=== PATIENT | female | born 1990 | race Caucasian/White ===

== ENCOUNTER → 2021-01-26 | Outpatient (CLI) | payer OTHER ==
--- NOTE | 2021-01-26 13:31 | Diagnostic Imaging Report ---
INDICATION: survey. TECHNIQUE: Multiple real-time grayscale images were obtained over the gravid uterus. COMPARISON: None FINDINGS: There is a single live fetus in a breech presentation. heart rate was recorded at 158 bpm. Placenta is anterior. Amniotic fluid index is normal. Cervical length is 3.6 cm. kidneys, bladder and stomach are unremarkable. brain is unremarkable. There is a four-chamber heart. There is a three-vessel cord with normal insertion. spine is unremarkable. Biometrical measurements are as follows: Biparietal 4.72 cm, age 20 weeks 2 days. Head circumference 17.88 cm, age 20 weeks 3 days. Abdominal circumference 14.95 cm, age 20 weeks 2 days. Femur length 3.12 cm, age 19 weeks 5 days. Sonographic estimate age: 20 weeks 2 days. Sonographic estimated date of delivery: 06/13/2021. Estimated Weight: 326 gm (+/- 48 gm). LMP percentile: 30%. heart rate: 158 beats per minute. number: 1 of 1. IMPRESSION: Single live IUP 20 weeks 2 days gestational age. Estimated date of confinement sonographically is a 06/13/2021. Dictated by: Dictated on workstation # [id number]
== END ==
LOC: RAD 09:51
PROVIDERS: ATTEND Obstetrics & Gynecology
DX: Z34.92 Encounter for supervision of normal pregnancy, unspecified, second trimester (principal); Z3A.20 20 weeks gestation of pregnancy
CPT/HCPCS: 76805

== ENCOUNTER 2021-06-11 08:22 | Inpatient (IN) | payer OTHER ==
[~2021-06-11] VITALS: Ht 152.4 cm; Wt 65.4 kg
[2021-06-11] VITALS (9 sets, daily range): BP systolic 106–122; BP diastolic 61–85
[2021-06-11] MEDS ORDERED: AMPICILLIN FOR IV USE 2,000 MG in WATER (STERILE) FOR INJECTION 14.8 ML IV SCH (08:37)
[2021-06-11] MEDS ORDERED: WATER (STERILE) FOR INJECTION 20 ML ONE (08:39)
[2021-06-11] MEDS ORDERED: AMPICILLIN 2,000 MG/14.8 ML (IV USE) ONE (08:39)
[2021-06-11] MEDS ORDERED: AMPICILLIN FOR IV USE 2,000 MG in WATER (STERILE) FOR INJECTION 14.8 ML IV ONE (08:45)
[2021-06-11] MEDS ORDERED: OXYTOCIN PRE-MIX DRIP 500 ML IV SCH ×2 (08:45→10:30)
[2021-06-11] MEDS ORDERED: D5 LR IV SOLUTION 1,000 ML IV SCH ×2 (08:45)
[2021-06-11] MEDS ORDERED: AMPICILLIN FOR IV USE 1,000 MG in WATER (STERILE) FOR INJECTION 7.4 ML IV SCH ×2 (08:45→12:45)
[2021-06-11 08:51] LABS: BASOPHILS # (AUTO) 0.1 10^3/uL (0.0-0.1); BASOPHILS % (AUTO) 0 % (0-10); EOSINOPHILS # (AUTO) 0.1 10^3/uL (0.0-0.3); EOSINOPHILS % (AUTO) 1 % (0-10); HEMATOCRIT 35 % (35-52); HEMOGLOBIN 11.6 g/dL (11.5-16.0); LYMPHOCYTES # (AUTO) 2.4 10^3/uL (1.0-4.0); LYMPHOCYTES % (AUTO) 19 % (12-44); MEAN CORPUSCULAR HEMOGLOBIN 30 pg (25-34); MEAN CORPUSCULAR HGB CONC 33 g/dL (32-36); MEAN CORPUSCULAR VOLUME 90 fL (80-99); MEAN PLATELET VOLUME 10.9 fL (9.0-12.2); MONOCYTES # (AUTO) 0.9 10^3/uL (0.0-1.0); MONOCYTES % (AUTO) 7 % (0-12); NEUTROPHILS # (AUTO) 9.2 10^3/uL (1.8-7.8); NEUTROPHILS % (AUTO) 73 % (42-75); PLATELET COUNT 138 10^3/uL (130-400); WHITE BLOOD COUNT 12.7 10^3/uL (4.3-11.0)
[2021-06-11] MEDS ORDERED: LIDOCAINE 1% INJ 20 ML 20 ML VIAL ONE (08:53)
[2021-06-11] MEDS ORDERED: MEASLES,MUMPS,RUBELLA 1 EA INJ SC ONE (10:30)
[2021-06-11] MEDS ORDERED: oxyCODONE/APAP 5/325MG (PERCOCET 5) TABLET PO PRN (10:30)
[2021-06-11] MEDS ORDERED: ONDANSETRON 4 MG/2 ML (SDV) Z0FRAN IVP PRN (10:30)
[2021-06-11] MEDS ORDERED: TETANUS,DIPTH,PERTUSS P/F (BOOSTRIX) 0.5 ML VIAL IM ONE (10:30)
[2021-06-11] MEDS ORDERED: BENZOCAINE/MENTHOL (DERMOPLAST) 56 ML CAN TP PRN (10:30)
[2021-06-11] MEDS ORDERED: KETOROLAC 30 MG/ML VIAL ONE (10:40)
[2021-06-11] MEDS: KETOROLAC 30 MG/ML VIAL IVP SCH ×2 (10:43→18:01)
[2021-06-11] MEDS ORDERED: PREN-37 PO (11:21)
[2021-06-11] MEDS: ACETAMINOPHEN 500 MG TAB (TYLENOL) PO PRN (13:26)
--- NOTE | 2021-06-11 13:29 | OPERATIVE REPORT ---
DATE OF SERVICE: 06/11/2021 DELIVERY NOTE The patient delivered by term spontaneous vaginal delivery of a viable female with Apgars of 9 and 9 at 1 and 5 minutes respectively, weight of 7 pounds 8 ounces. time of 0935. Delivery was accomplished over an intact perineum under no analgesia. The was bulb suctioned on delivery of the head and again on completion of delivery. Umbilical cord was doubly clamped, the father cut the cord, the baby was passed to mom's abdomen. Cord bloods were obtained. The placenta delivered spontaneously [place]. It was normal with a 3-vessel cord. It was sent to pathology for permanent section. The cervix, vagina, rectum, and perineum were examined and found intact. Sponge and needle counts were correct on completion of delivery and the post-delivery inspection. Blood loss was around 100 mL. The patient remained in the LDR for recovery and the baby remained with the mom. Job ID: [id number] DocumentID: [id number] Dictated Date: 06/11/2021 09:50:12 [employer] Date: 06/11/2021 13:28:55 Dictated By: SHANEL LOVE MD
[2021-06-11] MEDS ORDERED: CATHETER FLUSH 10 ML SYR IV SCH (14:00)
[2021-06-11] MEDS ORDERED: OXYC1TAB87 PO (16:10)
[2021-06-11] MEDS ORDERED: DCS100C PO (16:10)
[2021-06-11] MEDS ORDERED: IBUP-1780 PO (16:10)
--- NOTE | 2021-06-11 16:13 | Discharge Inst-Surgical ---
Discharge Inst-Surgical Depart Medication/Instructions New, Converted or Re-Newed RX: Transmitted to Pharmacy Consults/Follow Up Patient Instructions: As directed Orders & Referrals Follow Up Appt: Call to make follow up appt. for patient in [address] Leiva. Activity Per routine post vaginal delivery instructions. Diet as tolerated Patient may shower or tub bathe as desired. Activity Activity as Tolerated: No Diet Discharge Diet: No Restrictions SHANEL LOVE MD Jun 11, 2021 16:13
[2021-06-11] MEDS: DOCUSATE SODIUM 100 MG (COLACE) CAP PO SCH (20:44)
[2021-06-12] VITALS: BP 99/54
[2021-06-12] MEDS: KETOROLAC 30 MG/ML VIAL IVP SCH ×2 (00:05→06:19)
[2021-06-12 04:00] VITALS: BP 102/87
--- NOTE | 2021-06-12 07:21 | Progress Note ---
Standard Progress Note Progress Notes/Assess & Plan Date Seen by a Provider: Jun 12, 2021 Time Seen by a Provider: 07:21 Progress/Assessment & Plan This patient is without complaint. She is ambulating, voiding, tolerating oral intake well has good pain control. Vital Signs 06/12/21 04:00 Temp 36.9 Pulse 69 Resp 16 B/P (MAP) 102/87 (92) Pulse Ox 99 O2 Delivery Room Air Vital signs are stable. Patient is afebrile. Fundus is firm below the umbilicus and nontender. Extremities show no clubbing cyanosis. There is no Homans' sign. Assessment and plan day #1 status post term spontaneous vaginal labor at 39+ weeks gestation. Plan is for routine convalescent care with discharge home at patient's request today or tomorrow Final Diagnosis 39-week spontaneous vaginal delivery SHANEL LOVE MD Jun 12, 2021 07:21
[2021-06-12 08:45] VITALS: BP 114/69
[2021-06-12] MEDS: DOCUSATE SODIUM 100 MG (COLACE) CAP PO SCH ×2 (08:47→21:00)
[2021-06-12] MEDS: ACETAMINOPHEN 500 MG TAB (TYLENOL) PO PRN (08:47)
[2021-06-12] MEDS ORDERED: IBUPROFEN 800 MG (MOTRIN) TAB PO ONE (13:20)
[2021-06-12] MEDS: IBUPROFEN 800 MG (MOTRIN) TAB PO SCH ×2 (13:28→18:26)
[2021-06-12 13:30] VITALS: BP 107/59
[2021-06-12 18:15] VITALS: BP 112/71
[2021-06-12 22:25] VITALS: BP 103/71
[2021-06-13] MEDS: IBUPROFEN 800 MG (MOTRIN) TAB PO SCH ×3 (06:00→12:12)
[2021-06-13 08:56] VITALS: BP 101/59
[2021-06-13] MEDS: DOCUSATE SODIUM 100 MG (COLACE) CAP PO SCH (09:04)
--- NOTE | 2021-06-13 10:04 | Progress Note ---
Standard Progress Note Progress Notes/Assess & Plan Date Seen by a Provider: Jun 13, 2021 Time Seen by a Provider: 10:03 Progress/Assessment & Plan This patient is without complaint. She is ambulating, voiding, tolerating oral intake well has good pain control. Vital Signs 06/12/21 04:00 Temp 36.9 Pulse 69 Resp 16 B/P (MAP) 102/87 (92) Pulse Ox 99 O2 Delivery Room Air Vital signs are stable. Patient is afebrile. Fundus is firm below the umbilicus and nontender. Extremities show no clubbing cyanosis. There is no Homans' sign. Assessment and plan day #1 status post term spontaneous vaginal labor at 39+ weeks gestation. Plan is for routine convalescent care with discharge home at patient's request today or tomorrow June 13, 2021 This patient is without complaint. She is ambulating, voiding, tolerating oral intake well and has good pain control. Patient is requesting discharge home. Vital Signs Date Time Temp Pulse Resp B/P (MAP) Pulse Ox O2 Delivery O2 Flow Rate FiO2 06/13/21 08:56 37.2 70 16 101/59 (73) 97 Room Air 06/12/21 22:25 36.4 60 16 103/71 (82) 99 Room Air 06/12/21 18:15 37.0 72 18 112/71 (85) 97 Room Air 06/12/21 13:30 36.5 86 18 107/59 (75) 96 Room Air Vital signs are stable. Patient is afebrile. Fundus is firm below the umbilicus nontender Extremities show no clubbing cyanosis. There is no Homans' sign. Assessment and plan day #2 status post term spontaneous vaginal labor doing well. Plan is for discharge home with follow-up in clinic Final Diagnosis 9-week spontaneous vaginal delivery SHANEL LOVE MD Jun 13, 2021 10:04
[2021-06-13 12:48] VITALS: BP 101/59
[2021-06-16] MEDS ORDERED: IBUPROFEN 800 MG (MOTRIN) TAB PO SCH (12:00)
== END 2021-06-13 13:00 | disposition home or self-care (01) | DRG 807 ==
LOC: WSo 08:22 → LDRP 08:24 → WSo 08:35 → LDRP 08:36
PROVIDERS: ADMIT Obstetrics & Gynecology; ATTEND Obstetrics & Gynecology
PROC: 10E0XZZ Delivery of Products of Conception, External Approach (ICD-10-PCS; principal; 2021-06-11)
DX: O80 Encounter for full-term uncomplicated delivery (principal); Z37.0 Single live birth; Z3A.39 39 weeks gestation of pregnancy
CPT/HCPCS: 36415; 85025; 86850; 86900; 86901; 99212

== ENCOUNTER 2023-09-16 23:46 | Emergency (ER) | payer OTHER ==
[~2023-09-16] VITALS: Ht 152.4 cm; Wt 49.8 kg
[~2023-09-16 23:46] MED LIST: DOCU-239 PO; IBUP-1780 PO; OXYC1TAB87 PO; PREN-37 PO
[2023-09-17] MEDS ORDERED: LACTATED RINGERS 1,000 ML 1,000 ML IV ONE ×2 (00:15→00:45)
--- NOTE | 2023-09-17 00:15 | ED Abdominal Pain ---
General Chief Complaint: Abdominal/GI Problems Stated Complaint: RT SIDE PX Nursing Triage Note: PT AMB TO RM 10 WHILE GUARDING ABD. PT STATES THAT SHE DEVELOPED RIGHT SIDED ABD THAT STARTED THIS EVENING. PT REPORTS THAT SHE STARTED HER PERIOD TODAY WHILE. HISTORY OF OVARIAN CYST. Source of Information: Patient History of Present Illness Date Seen by Provider: Sep 17, 2023 Time Seen by Provider: 00:02 Initial Comments PT ARRIVES VIA POV FROM HOME C/O RLQ PAIN SINCE 1400 THIS AFTERNOON, HAS BEEN SEVERE SINCE 2129 TONIGHT RATES PAIN 10/10 + NAUSEA, NO VOMITING. HAD NORMAL BM EARLIER TODAY NO URINARY SYMPTOMS STARTED HER PERIOD TODAY, NORMAL. NO CONTROL. NO VAGINAL DISCHARGE OR FORESTRY ADVISER COMPLAINTS PRIOR TO STARTING HER PERIOD TODAY NO FEVER NO HISTORY OF SIMILAR HAS HAD SURGERY FOR OVARIAN CYST IN THE PAST, NO OTHER SURGERIES NO CHRONIC MEDICAL PROBLEMS OR DAILY MEDICATIONS. PT TOOK 600 MG IBUPROFEN AT 2144--NO RELIEF. PCP: NONE--PT FROM HERE AND JUST MOVED TO [place]--NO DR ANYWHERE. STATES SHE NEVER GOES TO THE DR. Allergies and Home Medications Allergies Coded Allergies: No Known Drug Allergies (Unverified , 06/11/21) Patient Home Medication List Home Medication List Reviewed: Yes Docusate Sodium (Dok) 100 Mg Capsule, 100 MG PO BID Prescribed by: SHANEL VILLALOBOS on 06/11/21 161 Ibuprofen (Ibuprofen) 800 Mg Tablet, 800 MG PO Q6HR Prescribed by: SHANEL VILLALOBOS on 06/11/21 161 Ketorolac Tromethamine (Ketorolac Tromethamine) 10 Mg Tablet, 10 MG PO Q6H Prescribed by: PAZ THORNTON on 09/17/23 05 Ondansetron (Ondansetron Odt) 4 Mg Tab.rapdis, 4 MG PO Q4H Prescribed by: PAZ THORNTON on 09/17/23 0514 Oxycodone HCl/Acetaminophen (Percocet 5-325 mg Tablet) 1 Each Tablet, 1 TAB PO Q4H PRN for PAIN-MODERATE (5-7) Prescribed by: SHANEL VILLALOBOS on 06/11/21 1612 Vit/Iron Fumarate/FA ( Tablet) 1 Each Tablet, 1 EACH PO DAILY, (Reported) Entered as Reported by: PRITI SANCHEZ on 06/11/21 1121 Review of Systems Review of Systems Constitutional: no symptoms reported Respiratory: No Symptoms Reported Cardiovascular: No Symptoms Reported Gastrointestinal: See HPI, Abdominal Pain, Nausea Genitourinary: See HPI Musculoskeletal: no symptoms reported Skin: no symptoms reported Psychiatric/Neurological: No Symptoms Reported Endocrine: No Symptoms Reported Hematologic/Lymphatic: No Symptoms Reported Past Dgzmxik-Etkvmj-Nzunou Hx Patient Social History Tobacco Use?: No Substance use?: No Alcohol Use?: Yes Alcohol Frequency: Once in a while Immunizations Up To Date First/Initial COVID19 Vaccinat: JANUARY 2021 Second COVID19 Vaccination [place]: JANUARY 2021 Third COVID19 Vaccination Date: JANUARY 2021 Past Medical History Surgery/Hospitalization HX: OVARIAN CYST REMOVAL Surgeries: Yes (OVARIAN CYST REMOVAL) Respiratory: No Cardiac: No Neurological: No Reproductive Disorders: Yes Female Reproductive Disorders: Ovarian Cyst Genitourinary: No Gastrointestinal: No Musculoskeletal: No Endocrine: No HEENT: No Cancer: No Psychosocial: No Integumentary: No Blood Disorders: No Physical Exam Vital Signs Vital Signs - First Documented 09/17/23 00:00 Temp 36.6 Pulse 81 B/P (MAP) 127/89 (102) Pulse Ox 99 O2 Delivery Room Air Capillary Refill : Height/Weight/BMI Height: '" Weight: lbs. oz. 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, no motor/sensory deficits, alert, oriented x 3 Skin: normal color, warm/dry; No rash Progress/Results/Core Measures Results/Orders Lab Results Laboratory Tests Test 09/17/23 00:05 09/17/23 00:10 Range/Units White Blood Count 14.2 H 4.3-11.0 10^3/uL Red Blood Count 4.51 3.80-5.11 10^6/uL Hemoglobin 11.9 11.5-16.0 g/dL Hematocrit 37 35-52 % Mean Corpuscular Volume 81 80-99 fL Mean Corpuscular Hemoglobin 26 25-34 pg Mean Corpuscular Hemoglobin Concent 33 32-36 g/dL Red Cell Distribution Width 13.5 10.0-14.5 % Platelet Count 296 130-400 10^3/uL Mean Platelet Volume 9.5 9.0-12.2 fL Immature Granulocyte % (Auto) 0 % Neutrophils (%) (Auto) 74 42-75 % Lymphocytes (%) (Auto) 20 12-44 % Monocytes (%) (Auto) 5 0-12 % Eosinophils (%) (Auto) 0 0-10 % Basophils (%) (Auto) 0 0-10 % Neutrophils # (Auto) 10.6 H 1.8-7.8 10^3/uL Lymphocytes # (Auto) 2.8 1.0-4.0 10^3/uL Monocytes # (Auto) 0.7 0.0-1.0 10^3/uL Eosinophils # (Auto) 0.0 0.0-0.3 10^3/uL Basophils # (Auto) 0.1 0.0-0.1 10^3/uL Immature Granulocyte # (Auto) 0.1 0.0-0.1 10^3/uL Neutrophils % (Manual) 70 % Lymphocytes % (Manual) 20 % Monocytes % (Manual) 3 % Band Neutrophils 2 % Reactive Lymphocytes 5 % Elliptocytes SLIGHT Sodium Level 133 L 135-145 MMOL/L Potassium Level 3.3 L 3.6-5.0 MMOL/L Chloride Level 101 98-107 MMOL/L Carbon Dioxide Level 21 21-32 MMOL/L Anion Gap 11 5-14 MMOL/L Blood Urea Nitrogen 11 7-18 MG/DL Creatinine 0.71 0.60-1.30 MG/DL Estimat Glomerular Filtration Rate 114 BUN/Creatinine Ratio 15 Glucose Level 106 H 70-105 MG/DL Calcium Level 9.5 8.5-10.1 MG/DL Corrected Calcium 9.1 8.5-10.1 MG/DL Total Bilirubin 0.4 0.1-1.0 MG/DL Aspartate Amino Transf (AST/SGOT) 19 5-34 U/L Alanine Aminotransferase (ALT/SGPT) 10 0-55 U/L Alkaline Phosphatase 47 40-136 U/L C-Reactive Protein High Sensitivity 0.09 0.00-0.50 MG/DL Total Protein 8.0 6.4-8.2 GM/DL Albumin 4.5 3.2-4.5 GM/DL Serum Test, Qualitative NEGATIVE NEGATIVE Urine Color YELLOW Urine Clarity CLEAR Urine pH 6.0 5-9 Urine Specific [place] >=1.030 1.016-1.022 Urine Protein 2+ H NEGATIVE Urine Glucose (UA) NEGATIVE NEGATIVE Urine Ketones 4+ H NEGATIVE Urine Nitrite NEGATIVE NEGATIVE Urine Bilirubin 1+ H NEGATIVE Urine Urobilinogen 0.2 < = 1.0 MG/DL Urine Leukocyte Esterase NEGATIVE NEGATIVE Urine RBC (Auto) 2+ H NEGATIVE Urine RBC 5-10 H /HPF Urine WBC NONE /HPF Urine Crystals PRESENT H /LPF Urine Amorphous Sediment FEW ALFONZO URATES H /LPF Urine Bacteria TRACE /HPF Urine Casts NONE /LPF Urine Mucus LARGE H /LPF Urine Culture Indicated NO My Orders Orders - PAZ THORNTON DO Ed Iv/Invasive Line Start (09/17/23 00:08) Urine Bedside (09/17/23 00:08) Monitor-Rhythm Ecg Trace Only (09/17/23 00:08) Cbc And Automated Diff (09/17/23 00:08) Comprehensive Metabolic Panel (09/17/23 00:08) Hs C Reactive Protein (09/17/23 00:08) Hcg,Qualitative Serum (09/17/23 00:08) Ua Culture If Indicated (09/17/23 00:08) Ed Iv/Invasive Line Start (09/17/23 00:08) Lactated Ringers 1,000 Ml (Lactated Ring (09/17/23 00:15) Manual Differential (09/17/23 00:05) Ct Abd/Pelv W (Appendicitis) (09/17/23 00:35) Ketorolac Injection (Ketorolac Injection (09/17/23 00:45) Ondansetron Injection (Ondansetron Inj (09/17/23 00:45) Ed Iv/Invasive Line Start (09/17/23 00:43) Lactated Ringers 1,000 Ml (Lactated Ring (09/17/23 00:45) Iohexol Injection (Omnipaque 350 Mg/Ml 1 (09/17/23 01:30) Received Contrast (Hold Metformin- Contr (09/17/23 01:30) Sodium Chloride Flush (Catheter Flush Sy (09/17/23 01:30) Ns (Ivpb) 100 Ml (Sodium Chloride 0.9% 1 (09/17/23 01:30) Us Non Ob Transvaginal [id number] (09/17/23 02:49) Medications Given in ED Current Medications Medications Dose Ordered Sig/Bernadette Route Start Time Stop Time Status Last Admin Dose Admin Iohexol 100 ml ONCE ONCE IV 09/17/23 01:30 09/17/23 01:31 DC 09/17/23 01:27 60 ML Ketorolac Tromethamine 30 mg ONCE ONCE IVP 09/17/23 00:45 09/17/23 00:46 DC 09/17/23 00:49 30 MG Lactated Ringer's 1,000 ml @ 0 mls/hr Q0M ONCE IV 09/17/23 00:15 09/17/23 00:16 DC 09/17/23 00:23 0 MLS/HR Lactated Ringer's 1,000 ml @ 0 mls/hr Q0M ONCE IV 09/17/23 00:45 09/17/23 00:46 DC 09/17/23 00:49 0 MLS/HR Ondansetron HCl 4 mg ONCE ONCE IVP 09/17/23 00:45 09/17/23 00:46 DC 09/17/23 00:49 4 MG Sodium Chloride 10 ml NEEDED PRN IV 09/17/23 01:30 09/17/23 01:28 10 ML Sodium Chloride 100 ml ONCE ONCE IV 09/17/23 01:30 09/17/23 01:31 DC 09/17/23 01:27 80 ML Vital Signs/I&O 09/17/23 00:00 Temp 36.6 Pulse 81 B/P (MAP) 127/89 (102) Pulse Ox 99 O2 Delivery Room Air Blood Pressure Mean: 102 Progress Progress Note : Progress Note VITALS ON ARRIVAL: TEMP 36.6=97.8, HR 81, BP 127/89, O2 SAT 99% ON ROOM AIR GIVEN: -IV FLUIDS -ZOFRAN -TORADOL PAIN AND NAUSEA IMPROVED WITH MEDICATIONS LABS: -CBC WITH WBC 14.2, OTHERWISE NORMAL -CMP WITH NA 133, K 3.3, OTHERWISE NORMAL -CRP 0.09 -UA CLEAR -HCG NEGATIVE CT SCAN OF ABDOMEN/PELVIS WITH OVARIAN CYSTS ULTRASOUND Diagnostic Imaging Comments CT ABDOMEN/PELVIS--PER [facility] VIA FAX AT 3771 -NO EVIDENCE OF APPENDICITIS -PROBABLE 5.5 CM LEFT OVARIAN CYST WITH THICKENED PERIPHERAL MARGINS -PROBABLE 3.8 CM OVARIAN FAT-CONTAINING TERATOMA -SMALL AMOUNT OF FREE FLUID IN PELVIS -MODERATE-LARGE RETAINED COLONIC AND RECTAL STOOL PELVIC ULTRASOUND--PER [facility] VIA FAX AT 6402 -UNREMARKABLE UTERUS AND ENDOMETRIAL STRIPE -NO EVIDENCE FOR OVARIAN TORSION -4.4 CM LEFT OVARIAN HEMORRHAGIC CYST Reviewed: Reviewed by Me Departure Impression Primary Impression: Hemorrhagic cyst of left ovary Disposition: HOME, SELF-CARE Condition: Improved Departure-Patient Inst. Decision time for Depature: 05:12 Referrals: DERREK ROMERO DO (PCP) Primary Care Physician NO,LOCAL PHYSICIAN (Family) Primary Care Physician Patient Instructions: Ovarian Cyst ED Add. Discharge Instructions: LOTS OF FLUIDS FOLLOW UP WITH OF [facility]REW IF SYMPTOMS PERSIST, RETURN TO ER IF SYMPTOMS WORSEN All discharge instructions reviewed with patient and/or family. Voiced understanding. Scripts Ondansetron (Ondansetron Odt) 4 Mg Tab.rapdis 4 MG PO Q4H for Nausea/Vomiting, #10 TAB Prov: PAZ THORNTON DO 09/17/23 Ketorolac Tromethamine (Ketorolac Tromethamine) 10 Mg Tablet 10 MG PO Q6H for Pain, #15 TAB Prov: PAZ THORNTON DO 09/17/23 PAZ THORNTON DO Sep 17, 2023 00:15
[2023-09-17 00:18] LABS: BASOPHILS # (AUTO) 0.1 10^3/uL (0.0-0.1); BASOPHILS % (AUTO) 0 % (0-10); EOSINOPHILS % (AUTO) 0 % (0-10); HEMATOCRIT 37 % (35-52); HEMOGLOBIN 11.9 g/dL (11.5-16.0); LYMPHOCYTES # (AUTO) 2.8 10^3/uL (1.0-4.0); LYMPHOCYTES % (AUTO) 20 % (12-44); MEAN CORPUSCULAR HEMOGLOBIN 26 pg (25-34); MEAN CORPUSCULAR HGB CONC 33 g/dL (32-36); MEAN CORPUSCULAR VOLUME 81 fL (80-99); MEAN PLATELET VOLUME 9.5 fL (9.0-12.2); MONOCYTES # (AUTO) 0.7 10^3/uL (0.0-1.0); MONOCYTES % (AUTO) 5 % (0-12); NEUTROPHILS # (AUTO) 10.6 10^3/uL (1.8-7.8); NEUTROPHILS % (AUTO) 74 % (42-75); PLATELET COUNT 296 10^3/uL (130-400); WHITE BLOOD COUNT 14.2 10^3/uL (4.3-11.0)
[2023-09-17 00:21] LABS: ALBUMIN 4.5 GM/DL (3.2-4.5); POTASSIUM 3.3 MMOL/L (3.6-5.0)
[2023-09-17 00:22] LABS: CALCIUM 9.5 MG/DL (8.5-10.1)
[2023-09-17 00:25] LABS: BILIRUBIN,TOTAL 0.4 MG/DL (0.1-1.0)
[2023-09-17 00:27] LABS: CREATININE SERUM 0.71 MG/DL (0.60-1.30)
[2023-09-17 00:29] LABS: CLARITY,URINE CLEAR; COLOR,URINE YELLOW
[2023-09-17 00:30] LABS: AMORPHOUS SEDIMENT,UR FEW AMOR URATES /LPF; BACTERIA,URINE TRACE /HPF; BILIRUBIN,URINE 1+ (NEGATIVE); GLUCOSE, URINE (UA) NEGATIVE (NEGATIVE); KETONES,URINE 4+ (NEGATIVE); LEUKOCYTE ESTERASE ,URINE NEGATIVE (NEGATIVE); NITRITE,URINE NEGATIVE (NEGATIVE); PROTEIN,URINE 2+ (NEGATIVE)
[2023-09-17 00:36] LABS: BAND NEUTROPHILS 2 %; LYMPHOCYTES % (MANUAL) 20 %; MONOCYTES % (MANUAL) 3 %; NEUTROPHILS % (MANUAL) 70 %; REACTIVE LYMPHOCYTES 5 %
[2023-09-17 00:37] LABS: ELLIPT/OVALOCYTES SLIGHT
[2023-09-17] MEDS ORDERED: KETOROLAC INJ 30 MG/ML VIAL IVP ONE (00:45)
[2023-09-17] MEDS ORDERED: ONDANSETRON INJECTION 4 MG/2 ML (SDV) IVP ONE (00:45)
[2023-09-17] MEDS ORDERED: IOHEXOL 350 MG/ML 100 ML (OMNIPAQUE 350) VIAL IV ONE (01:30)
[2023-09-17] MEDS ORDERED: CATHETER FLUSH 10 ML SYR IV PRN (01:30)
[2023-09-17] MEDS ORDERED: NS 100 ML (IVPB) BAG IV ONE (01:30)
[2023-09-17] MEDS ORDERED: HOLD METFORMIN - RECEIVED CONTRAST 20 ML VIAL IV SCH (01:30)
[2023-09-17] MEDS ORDERED: ONDA4TAB11 PO (05:14)
[2023-09-17] MEDS ORDERED: KETO10TA PO (05:14)
[2023-09-17 05:29] VITALS: BP 118/79
--- NOTE | 2023-09-17 07:21 | Diagnostic Imaging Report ---
PROCEDURE: CT abdomen and pelvis with contrast, rule out appendicitis. TECHNIQUE: Multiple contiguous axial images were obtained through the abdomen and pelvis after the administration of intravenous contrast. All CT scans use one or more of the following dose optimizing techniques: automated exposure control, MA and/or KvP adjustment based on patient size and exam type or iterative reconstruction. INDICATION: Right lower quadrant pain. COMPARISON: None. FINDINGS: The lung bases are clear. The heart is normal in size. There is no pericardial effusion. The liver demonstrates no focal lesions but there does appear to be some periportal edema present. The main portal vein is patent. The gallbladder wall appears thickened. The spleen appears normal. The pancreas is normal. The adrenal glands appear normal. The kidneys demonstrate no enhancing lesions and no hydronephrosis. The bowel loops are nondistended without obstruction. The appendix appears normal (image 111 series 2). There is moderate stool in the colon, particularly in the ascending colon. A small amount of free fluid is seen in the pelvis. There is a cystic lesion in the left pelvis which measures about 5.5 x 4.4 x 5.6 cm in size. There is an adjacent calcification as well as a fatty mass in the left pelvis measuring 3.3 x 3.5 cm in size. This causes mass effect on the superior bladder. The aorta is normal in caliber. No adenopathy is seen. No acute osseous abnormality is seen. IMPRESSION: 1. No appendicitis. 2. Large left ovarian cyst along with a fatty mass with calcification, likely a teratoma. 3. Moderate stool in the colon, particularly the ascending colon. Please correlate with any history of constipation. 4. Small amount of free fluid in the pelvis. 5. Mild periportal edema in the liver. This is nonspecific but can be seen with hepatic congestion, heart failure, hepatitis, and other etiologies. 6. Mild wall thickening of the gallbladder is also nonspecific but can be seen with the above findings as well as cholecystitis or hypoproteinemia. 7. Findings regarding periportal edema and gallbladder wall thickening were not included in the preliminary report, otherwise agree with the preliminary report. These additional findings were communicated to the Emergency Room via the additional findings tracking sheet. Dictated by: Dictated on workstation # [id number]
--- NOTE | 2023-09-17 07:31 | Diagnostic Imaging Report ---
PROCEDURE: US NONOB transvaginal. TECHNIQUE: Multiple Real-time grayscale images were obtained of the pelvis in various projections endovaginally. INDICATION: Ovarian cysts, torsion, right lower quadrant pain. COMPARISON: CT from the same day. FINDINGS: The uterus measures 8.7 x 5.1 x 6.9 cm. No uterine masses are seen. The endometrium is mildly thickened measuring up to 1.8 cm in size. The right ovary measures 2.4 x 1.8 x 3.4 cm in size. There is normal blood flow. Small follicles are noted. The left ovary measures 2.9 x 1.9 x 1.9 cm in size. There is a prominent hypoechoic but heterogeneous lesion in the left pelvis at the ovary which measures 6.7 x 4 x 6.5 cm in size. There is blood flow in the left ovary. No torsion is seen. There is a small amount of free fluid. IMPRESSION: 1. Large cystic lesion in the left ovary which may be a hemorrhagic cyst or less likely an endometrioma. 2. No ovarian torsion. 3. Small amount of free fluid. 4. Mildly thickened endometrium. No masses are seen. Consider nonemergent followup ultrasound in 4-6 weeks. Findings regarding thickened endometrium were not included in the preliminary report; otherwise, agree with the preliminary report. These additional findings were communicated to the Emergency Room via the additional findings tracking sheet. Dictated by: Dictated on workstation # [id number]
== END 2023-09-17 05:29 | disposition home or self-care (01) ==
LOC: EDUNIT# 23:46 → ER 23:50
DX: N83.202 Unspecified ovarian cyst, left side (principal)
CPT/HCPCS: 36415; 74177; 76830; 80053; 81000; 84703; 85007; 85027; 86141; 93041